=== PATIENT | male | born 1990 | race African-American/Black ===

== ENCOUNTER 2020-10-30 12:39 | Emergency (ER) | payer MEDICAID, OTHER ==
[~2020-10-30] VITALS: Ht 182.9 cm; Wt 90.0 kg
[~2020-10-30 12:39] MED LIST: RISO02
[2020-10-30 14:12] LABS: *BARBITURATES SCREEN URINE NEGATIVE (NEGATIVE); *BENZODIAZEPINES SCREEN URINE NEGATIVE (NEGATIVE); *COCAINE SCREEN URINE NEGATIVE (NEGATIVE); CANNABINOID URINE SCREEN PRESUMTIVE POSITIVE (NEGATIVE); METHADONE URINE SCREEN NEGATIVE (NEGATIVE); OPIATES URINE SCREEN NEGATIVE (NEGATIVE); PHENCYCLIDINE URINE SCREEN NEGATIVE (NEGATIVE)
[2020-10-30 14:14] LABS: *AMPHETAMINES SCREEN URINE NEGATIVE (NEGATIVE)
[2020-10-30 14:26] LABS: CHLORIDE 101 mEq/L (98-107)
[2020-10-30 14:30] LABS: ETHANOL BLOOD < 10 mg/dL
[2020-10-30] MEDS ORDERED: LORAZEPAM 1MG TABLET PO ONE (14:30)
[2020-10-30] MEDS: OLANZAPINE 5MG TABLET PO SCH (14:33)
[2020-10-30 14:37] LABS: BASOPHILS % 0.4 % (0.0-2.0); HEMATOCRIT. 41.6 % (42.0-52.0); HEMOGLOBIN. 14.2 g/dL (14.0-18.0); LYMPHOCYTES % 17.6 % (20.0-50.0); MEAN CORPUSCULAR HEMOGLOBIN 29.7 pg (28.0-32.0); MEAN CORPUSCULAR VOLUME 86.9 fL (80.0-94.0); MEAN PLATELET VOLUME 9.3 fl (7.4-10.4); MONOCYTES % 6.4 % (2.0-8.0); NEUTROPHILS % 75.6 % (40.0-76.0); PLATELET 238 x1000/uL (130-400); RED BLOOD CELL COUNT 4.78 mill/uL (4.7-6.1); RED CELL DISTRIBUTION WIDTH 13.9 % (11.6-14.6)
[2020-10-31] MEDS: OLANZAPINE 5MG TABLET PO SCH (09:30)
[2020-10-31 17:47] VITALS: BP 116/66
== END 2020-10-31 17:55 ==
LOC: ER 12:39
DX: R45.851 Suicidal ideations (principal); F12.10 Cannabis abuse, uncomplicated; F20.9 Schizophrenia, unspecified; Z20.822 Contact with and (suspected) exposure to COVID-19; Z79.899 Other long term (current) drug therapy
CPT/HCPCS: 36415; 80053; 80305; 80307; 80320; 80329; 85025; 87426; 93005; 99285; G0480

== ENCOUNTER 2020-11-13 21:33 | Emergency (ER) | payer OTHER, MEDICAID ==
[~2020-11-13] VITALS: Ht 182.9 cm; Wt 94.0 kg
[2020-11-13 22:32] VITALS: BP 136/62
== END 2020-11-13 22:32 | disposition home or self-care (01) ==
LOC: ER 21:33
DX: L73.8 Other specified follicular disorders (principal)
CPT/HCPCS: 93005; 99283

== ENCOUNTER 2021-03-12 22:23 | Emergency (ER) | payer MEDICAID, OTHER ==
[~2021-03-12] VITALS: Ht 182.9 cm; Wt 100.0 kg
[2021-03-12 22:34] VITALS: BP 143/74
== END 2021-03-13 00:29 | disposition left against medical advice (07) ==
LOC: ER 22:23
DX: R21 Rash and other nonspecific skin eruption (principal); Z53.21 Procedure and treatment not carried out due to patient leaving prior to being seen by health care provider

== ENCOUNTER 2022-12-12 10:04 | Emergency (ER) | payer MEDICAID, OTHER ==
[~2022-12-12] VITALS: Ht 177.8 cm; Wt 97.0 kg
[2022-12-12 11:13] LABS: BASOPHILS % 0.1 % (0.0-2.0); EOSINOPHILS % 0.2 % (0.0-5.0); HEMATOCRIT. 41.9 % (42.0-52.0); HEMOGLOBIN. 14.1 g/dL (14.0-18.0); LYMPHOCYTES % 19.7 % (20.0-50.0); MEAN CORPUSCULAR HEMOGLOBIN 30.5 pg (28.0-32.0); MEAN CORPUSCULAR VOLUME 90.5 fL (80.0-94.0); MEAN PLATELET VOLUME 8.3 fl (7.4-10.4); MONOCYTES % 5.5 % (2.0-8.0); NEUTROPHILS % 74.5 % (40.0-76.0); PLATELET 304 x1000/uL (130-400); RED BLOOD CELL COUNT 4.63 mill/uL (4.7-6.1); RED CELL DISTRIBUTION WIDTH 13.2 % (11.6-14.6)
[2022-12-12 11:17] LABS: CHLORIDE 102 mEq/L (98-107)
[2022-12-12 11:34] LABS: ETHANOL BLOOD < 10 mg/dL
[2022-12-12 12:42] LABS: CLARITY URINE CLEAR (CLEAR); COLOR URINE YELLOW (YELLOW); KETONES URINE 1+ (NEGATIVE); LEUKOCYTE ESTERASE URINE NEGATIVE (NEGATIVE); NITRITE URINE NEGATIVE (NEGATIVE); OCCULT BLOOD URINE NEGATIVE (NEGATIVE); PROTEIN URINE NEGATIVE (NEGATIVE); SPECIFIC GRAVITY URINE 1.006 (1.005-1.030)
[2022-12-12 13:22] LABS: *AMPHETAMINES SCREEN URINE NEGATIVE (NEGATIVE); *BARBITURATES SCREEN URINE NEGATIVE (NEGATIVE); *BENZODIAZEPINES SCREEN URINE NEGATIVE (NEGATIVE); *COCAINE SCREEN URINE NEGATIVE (NEGATIVE); CANNABINOID URINE SCREEN PRESUMTIVE POSITIVE (NEGATIVE); METHADONE URINE SCREEN NEGATIVE (NEGATIVE); OPIATES URINE SCREEN NEGATIVE (NEGATIVE); PHENCYCLIDINE URINE SCREEN NEGATIVE (NEGATIVE)
[2022-12-13 06:37] VITALS: BP 121/73
[2022-12-13] MEDS ORDERED: OLANZAPINE 5MG TABLET PO SCH (09:30)
== END 2022-12-13 14:00 | disposition home or self-care (01) ==
LOC: ER 10:04
DX: R45.851 Suicidal ideations (principal); R44.0 Auditory hallucinations; F12.10 Cannabis abuse, uncomplicated; F15.10 Other stimulant abuse, uncomplicated; F31.9 Bipolar disorder, unspecified; Z20.822 Contact with and (suspected) exposure to COVID-19
CPT/HCPCS: 36415; 80053; 80305; 80307; 80320; 80329; 81003; 85025; 87426; 99285; C9803; G0480